=== PATIENT | male | born 2000 | race Caucasian/White ===

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

== ENCOUNTER 2022-11-01 17:30 | Emergency (ER) | payer BC, MEDICAID, SELFPAY ==
[2022-11-01 17:44] VITALS: BP 138/59; PULSE 77; RESP 16; TEMP 36.7; O2SAT 99
--- NOTE | 2022-11-01 18:09 | ED.SKABFB ---
HPI - Skin/Abscess/Foreign Bdy General Chief complaint: Skin/Abscess/Foreign Body Stated complaint: Posion Cyndi Right Arm Source: patient, family and RN notes reviewed History of Present Illness HPI narrative: 22 yo M presents to urgent care with complaints of an itchy rash to his right arm that has been spreading since Thursday this past week. Pt states he believes he has poison cyndi from work. 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 Denies any fevers, chills, chest pain, SOB, or vomiting. PT has taken a Benadryl and applied cortisone cream to the area without relief. Related Data Allergies Allergy/AdvReac Type Severity Reaction Status Date / Time No Known Drug Allergies Allergy Unknown Unknown Verified 11/01/22 18:08 Review of Systems Review of Systems: CONSTITUTIONAL: Denies fever, chills, or sweats. EYES: Denies visual changes, redness, or discharge. ENT: Denies otalgia and sore throat CARDIOVASCULAR: Denies chest pain, palpitations, or edema. RESPIRATORY: Denies cough or dyspnea. GASTROINTESTINAL: Denies abdominal pain, nausea, vomiting, or diarrhea. GENITOURINARY: Denies dysuria or hematuria. SKIN: Itchy rash MUSCULOSKELETAL: Denies back pain, joint pain, or myalgia. NEUROLOGIC: Denies headache, numbness, or weakness. Pertinent positives per HPI. PMFSH Past Medical History Medical History No acute medical problems Family History Family History Other Hypertension Social History Social History (Updated 04/20/20 @ 12:40 by Ashlie Cerda, RONALDO) Smoking status: Never smoker Living arrangements: with family Occupation/Education: student Comments At the time of my signature, I reviewed and agree with the nursing past medical, surgical, social, and family history. There is no relevant family history pertinent to the patient complaint. Exam Narrative: GENERAL: This is a well-nourished, well-developed patient, in no apparent distress. HEAD: normocephalic, atraumatic. EYES: Sclera clear/white. Vision is grossly intact. EARS: External ears normal, auditory canals clear and without drainage. Hearing grossly intact. NOSE: External nose normal with no obvious nasal discharge, nares without redness, no rhinorrhea. THROAT: Mucous membranes moist, posterior pharynx clear. NECK: Neck supple, non-tender without lymphadenopathy, masses or thyromegaly. CARDIOVASCULAR: Regular rate and rhythm without murmurs, gallops, or rubs. RESPIRATORY: Clear to auscultation. Breath sounds equal bilaterally. No wheezes, rales, or rhonchi. GASTROINTESTINAL: Abdomen soft, non-tender, nondistended. Bowel sounds are active. No hepato-splenomegaly, or palpable masses. No guarding. SKIN: erythremic, linear and scattered, papules to mostly right extremity, noted to left arm, abdomen, and right posterior ear. NEURO: awake, alert, and oriented to person, place and time. There were no obvious focal neurologic abnormalities. EXTREMITIES: No clubbing, cyanosis, or edema. No joint tenderness, effusion, or edema noted. BACK: Nontender without deformity or crepitus. No flank tenderness. Course Course Level of Care: Express Care Visit Vital Signs Vital signs: Vital Signs Temperature 98.1 F 11/01/22 17:44 Pulse Rate 77 11/01/22 17:44 Respiratory Rate 16 11/01/22 17:44 Blood Pressure 138/59 L 11/01/22 17:44 Pulse Oximetry 99 11/01/22 17:44 Oxygen Delivery Room Air 11/01/22 17:44 Temperature 98.1 F 11/01/22 17:44 Pulse Rate 77 11/01/22 17:44 Respiratory Rate 16 11/01/22 17:44 Blood Pressure 138/59 L 11/01/22 17:44 Pulse Oximetry 99 11/01/22 17:44 Oxygen Delivery Room Air 11/01/22 17:44 reviewed MDM - Skin/Abscess/Foreign Bdy MDM Narrative Medical decision making narrative: Prevention is always better than treatment. Learn to identify poison cyndi, oak, and sumac an
[2022-11-01] MEDS: methylPREDNISolone SOD SUCC 125 MG VIAL IM (18:20)
== END 2022-11-01 18:35 | disposition home or self-care (01) ==
PROVIDERS: Emergency Provider Nurse Practitioner Family; PCP Pediatrics
DX: L25.9 Unspecified contact dermatitis, unspecified cause (principal)
CPT/HCPCS: 96372; 99213; G0463; J2930

== ENCOUNTER 2023-11-09 11:36 | Emergency (ER) | payer BC, SELFPAY ==
[2023-11-09 11:42] VITALS: BP 137/93; PULSE 98; RESP 18; TEMP 37.1; O2SAT 100
--- NOTE | 2023-11-09 12:12 | ED.GENADULT ---
HPI - General Adult General Chief complaint: Skin/Abscess/Foreign Body Stated complaint: Rash Time Seen by Provider: 11/09/23 12:12 Source: patient Mode of arrival: ambulatory Limitations: no limitations History of Present Illness HPI narrative: 23-year-old male presented after exposure to poison rk today while at work. He states he has a history of severe reactions to poison rk and noticed red streaks on his left arm and would like to prevent a reaction. He has not taken anything for symptoms. reports mild itching. Denies lip, tongue, or throat swelling, shortness of breath or wheezing. Related Data Allergies Allergy/AdvReac Type Severity Reaction Status Date / Time No Known Drug Allergies Allergy Unknown Unknown Verified 11/01/22 18:08 Review of Systems Review of Systems: CONSTITUTIONAL: Denies body aches, fever, chills, or sweats. EYES: Denies visual changes, redness, or discharge. ENT: Denies rhinorrhea, congestion CARDIOVASCULAR: Denies chest pain, palpitations, or edema. RESPIRATORY: Denies cough or dyspnea. GASTROINTESTINAL: Denies abdominal pain, nausea, vomiting, or diarrhea. SKIN: Denies rash reports itching MUSCULOSKELETAL: Denies back pain, joint pain, or myalgia. NEUROLOGIC: Denies headache, numbness, tingling, or weakness. [facility] Past Medical History Medical History No acute medical problems Family History Family History Other Hypertension Social History Social History Smoking status: Never smoker Living arrangements: with family Occupation/Education: student Comments At time of signature, I have reviewed and agree with nursing past medical, surgical, social and family history unless otherwise noted. Please see nursing chart for further information. There is no relevant family history pertinent to the presenting complaint Exam Narrative: GENERAL: Well-appearing HEAD: Normocephalic, atraumatic. EYES: conjunctivae clear, and EOMI. ENT: Mucous membranes moist. Oropharynx without edema, erythema or lesions. NECK: Supple. No lymphadenopathy CHEST: Clear to auscultation. HEART: Regular rate and rhythm. SKIN: Warm, dry. no erythema or vesicles noted on the left arm NEURO: Alert and oriented x3. Course Course Emergency Course: Patient is aware of diagnosis, understands and agrees to treatment plan. Anticipatory guidance given. Patient agrees to follow-up as directed and is aware of reasons to seek care at the emergency department. Portions of this record may have been created with voice recognition software Level of Care: Express Care Visit Vital Signs Vital signs: Vital Signs Temperature 98.8 F 11/09/23 11:42 Pulse Rate 98 11/09/23 11:42 Respiratory Rate 18 11/09/23 11:42 Blood Pressure 137/93 H 11/09/23 11:42 Pulse Oximetry 100 11/09/23 11:42 Oxygen Delivery Room Air 11/09/23 11:42 Temperature 98.8 F 11/09/23 11:42 Pulse Rate 98 11/09/23 11:42 Respiratory Rate 18 11/09/23 11:42 Blood Pressure 137/93 H 11/09/23 11:42 Pulse Oximetry 100 11/09/23 11:42 Oxygen Delivery Room Air 11/09/23 11:42 Reviewed Medical Decision Making MDM Narrative Medical decision making narrative: Discussed physical exam findings. Advised supportive measures and signs/symptoms to go to the ER. Pt is appropriate for outpt treatment and f/u. Differential Diagnosis Differential Diagnosis: Viral exanthema, contact dermatitis, allergic dermatitis, eczema, urticaria, insect bites, impetigo, tinea, folliculitis Vital Signs Vital Signs: Vital Signs Temperature 98.8 F 11/09/23 11:42 Pulse Rate 98 11/09/23 11:42 Respiratory Rate 18 11/09/23 11:42 Blood Pressure 137/93 H 11/09/23 11:42 Pulse Oximetry 100 11/09/23 11:42 Oxygen Delivery Room Air
== END 2023-11-09 12:30 | disposition home or self-care (01) ==
PROVIDERS: Emergency Provider Nurse Practitioner Family
DX: T63.791A Toxic effect of contact with other venomous plant, accidental (unintentional), initial encounter (principal)
CPT/HCPCS: 99213; G0463